=== PATIENT | female | born 1985 | race Two or more races ===

== ENCOUNTER 2016-06-18 09:25 | Emergency (ER) | payer SELFPAY ==
[2016-06-18 10:27] LABS: SPECIFIC GRAVITY 1.025 (1.001-1.030); URINE BLOOD NEGATIVE (NEGATIVE); URINE GLUCOSE (UA) NEGATIVE (NEGATIVE); URINE LEUKOCYTE ESTERASE TRACE (NEGATIVE); URINE NITRITE NEGATIVE (NEGATIVE); URINE PROTEIN TRACE (NEGATIVE); URINE UROBILINOGEN NORMAL (0-1 mg/dl)
[2016-06-18 10:29] LABS: URINE APPEARANCE HAZY; URINE BILIRUBIN NEGATIVE (NEGATIVE); URINE COLOR YELLOW
[2016-06-18 10:30] LABS: HCG,QUALITATIVE URINE NEGATIVE
[2016-06-18 10:36] LABS: URINE BACTERIA FEW; URINE MUCUS 2+; URINE RBC 0-1 /hpf; URINE WBC 0-2 /hpf
[2016-06-18] MEDS ORDERED: IBUPROFEN 600 MG TABLET ONE (10:40)
[2016-06-18] MEDS ORDERED: CEFTRIAXONE SODIUM 1 G VIAL ONE (10:55)
[2016-06-18] MEDS ORDERED: AZITHROMYCIN 250 MG TABLET ONE (10:55)
[2016-06-19 14:52] LABS: CHLAMYDIA BD Negative (Negative); N.GONORRHOEAE BD Negative (Negative); SOURCE Urine (())
== END 2016-06-18 11:46 | disposition home or self-care (01) ==
LOC: ED 09:25
DX: R30.0 Dysuria (principal); R10.2 Pelvic and perineal pain; N89.8 Other specified noninflammatory disorders of vagina